=== PATIENT | female | born 1980 | race Caucasian/White ===

== ENCOUNTER 2023-06-11 11:42 | Inpatient (IN) | payer MEDICAID, OTHER ==
[~2023-06-11] VITALS: Ht 162.6 cm; Wt 75.3 kg
[2023-06-11 12:03] LABS: PH,URINE DRUG SCREEN 6.5 (5.0-8.0)
[2023-06-11 12:07] LABS: ALCOHOL, URINE DRUG SCREEN NEGATIVE (NEGATIVE); AMPHET/METH SCREEN,URINE NEGATIVE (NEGATIVE); BARBITURATE SCREEN, URINE NEGATIVE (NEGATIVE); BENZODIAZEPINES SCREEN,URINE NEGATIVE (NEGATIVE); CANNABINOID SCREEN,URINE POSITIVE (NEGATIVE); COCAINE SCREEN,URINE NEGATIVE (NEGATIVE); METHADONE SCREEN, URINE NEGATIVE (NEGATIVE); OPIATE SCREEN,URINE NEGATIVE (NEGATIVE); PHENCYCLIDINE SCREEN,URINE NEGATIVE (NEGATIVE)
[2023-06-11 12:08] LABS: BASOPHILS % (AUTO) 0.3 % (0.0-2.0); EOSINOPHILS % (AUTO) 0.2 % (1.0-6.0); HEMATOCRIT 38.6 % (36-46); HEMOGLOBIN 12.3 g/dL (12.0-16.0); LYMPHOCYTES # (AUTO) 1.5 K/uL (1.0-4.8); LYMPHOCYTES % (AUTO) 14.5 % (22.0-44.0); MEAN CORPUSCULAR HEMOGLOBIN 27.7 pg (26.0-34.0); MEAN CORPUSCULAR HGB CONC 31.9 G/dL (31.0-37.0); MEAN CORPUSCULAR VOLUME 87 fL (80-100); MONOCYTES # (AUTO) 0.6 K/uL (0.1-1.0); MONOCYTES % (AUTO) 5.3 % (2.0-9.0); NEUTROPHILS # (AUTO) 8.3 K/uL (1.8-7.7); NEUTROPHILS % (AUTO) 79.7 % (40.0-70.0); PLATELET COUNT (AUTO) 314 K/uL (150-450); RED BLOOD CELL COUNT(AUTO) 4.44 MIL/uL (4.00-5.20); RED CELL DISTRIBUTION WIDTH 14.9 % (11.5-14.5); WHITE BLOOD COUNT (AUTO) 10.5 K/uL (4.5-11.0)
[2023-06-11 12:17] LABS: ANION GAP 9 mmol/L (8-16); CALCIUM, TOTAL 8.8 mg/dL (8.8-10.5); CARBON DIOXIDE 29 mmol/L (22-29); CHLORIDE 95 mmol/L (98-107); CREATININE 0.93 mg/dL (0.60-1.30); GLOMERULAR FILTR. RATE CALC > 60 mL/min (>60); GLUCOSE,RANDOM 183 mg/dL (70-110); POTASSIUM 3.3 mmol/L (3.5-5.1); SODIUM SERUM 133 mmol/L (136-145); UREA NITROGEN, BLOOD 16 mg/dL (7-18)
[2023-06-11 12:20] LABS: ALANINE AMINOTRANSFERASE < 6 U/L (12-78); ALBUMIN 3.8 g/dL (3.4-5.0); ALKALINE PHOSPHATASE 94 U/L (46-116); ASPARTATE AMINOTRANSFERASE 47 U/L (15-37); BILIRUBIN,TOTAL 0.7 mg/dL (0.1-1.0); TOTAL PROTEIN, SERUM 7.6 g/dL (6.4-8.2)
[2023-06-11 12:30] LABS: ALCOHOL, BLOOD (SERUM) < 3 mg/dL (0-10)
[2023-06-11] MEDS ORDERED: TRAZ-184 PO (15:19)
[2023-06-11] MEDS ORDERED: GABA-1201 PO (15:20)
[2023-06-11] MEDS ORDERED: BUSP7.5T7 PO (15:23)
[2023-06-11] MEDS ORDERED: LOSA-30 PO (15:23)
[2023-06-11] MEDS ORDERED: ALBU90AE IH (15:25)
[2023-06-11] MEDS ORDERED: DULO-114 PO (15:26)
[2023-06-11] MEDS ORDERED: GABAPENTIN 400 MG CAPSULE PO ONE (17:00)
[2023-06-11 17:08] LABS: COVID AG,FIA SOURCE NASAL SWAB
[2023-06-11 17:29] LABS: SARS-COV2 (COVID) ANTIGEN,FIA Negative (Negative)
[2023-06-11] MEDS ORDERED: ALBUTEROL SULFATE HFA 90 MCG/PUFF 8 GM INHALER IH PRN (23:00)
[2023-06-12] MEDS ORDERED: LORazepam 2 MG TABLET PO PRN
[2023-06-12] MEDS ORDERED: HALOPERIDOL 5 MG TABLET PO PRN
[2023-06-12] MEDS ORDERED: HYDROCHLOROTHIAZIDE 25 MG TABLET PO ONE (09:30)
[2023-06-12] MEDS ORDERED: LOSARTAN POTASSIUM 50 MG TABLET PO SCH (09:30)
[2023-06-12] MEDS ORDERED: IBUPROFEN 600 MG TABLET PO PRN (09:30)
[2023-06-12] MEDS: GABAPENTIN 400 MG CAPSULE PO SCH ×2 (09:39→15:09)
[2023-06-12] MEDS: ZOLPIDEM TARTRATE 10 MG TABLET PO PRN (21:43)
[2023-06-12] MEDS ORDERED: ALBUTEROL SULFATE 2.5 MG/0.5 ML NEB SOLUTION NEB PRN (22:45)
[2023-06-12 23:05] VITALS: BP 144/95; PULSE 112; RESP 19; TEMP 97.2; O2SAT 98
[2023-06-13] VITALS (7 sets, daily range): BP systolic 144–189; BP diastolic 89–115; PULSE 100–118; RESP 18–20; TEMP 97–98.8; O2SAT 98–99
[2023-06-13] MEDS ORDERED: DOCUSATE SODIUM 100 MG CAPSULE PO PRN (07:15)
[2023-06-13] MEDS ORDERED: BACITRACIN 28 GM OINTMENT TP PRN (07:15)
[2023-06-13] MEDS ORDERED: OMEPRAZOLE 20 MG CAPSULE PO PRN (07:15)
[2023-06-13] MEDS ORDERED: ONDANSETRON HCL 4 MG TABLET PO PRN (07:15)
[2023-06-13] MEDS ORDERED: IBUPROFEN 600 MG TABLET PO PRN (07:15)
[2023-06-13] MEDS ORDERED: BENZOCAINE/MENTHOL LOZENGE PO PRN (07:15)
[2023-06-13] MEDS ORDERED: PETROLATUM,WHITE 28 GM JELLY TP PRN (07:15)
[2023-06-13] MEDS ORDERED: ACETAMINOPHEN 325 MG TABLET PO PRN (07:15)
[2023-06-13] MEDS ORDERED: MAGNESIUM HYDROXIDE SUSPENSION 30 ML UDCUP PO PRN (07:15)
[2023-06-13] MEDS ORDERED: ALBUTEROL SULFATE HFA 90 MCG/PUFF 8 GM INHALER IH PRN (07:15)
[2023-06-13] MEDS ORDERED: LOPERAMIDE HCL 2 MG CAPSULE PO PRN (07:15)
[2023-06-13] MEDS ORDERED: MAG HYDROX/AL HYDROX/SIMETH ES 30 ML SUSPENSION UDCUP PO PRN (07:15)
[2023-06-13] MEDS ORDERED: POTASSIUM CHLORIDE 20 MEQ ER TABLET PO ONE (07:15)
[2023-06-13] MEDS: FLUTICASONE/SALMETEROL 100-50 MCG/INH INHALER [60] IH SCH ×2 (08:48→20:46)
[2023-06-13] MEDS: LOSARTAN POTASSIUM 50 MG TABLET PO SCH (08:48)
[2023-06-13] MEDS: THIAMINE 100 MG TABLET PO SCH (08:49)
[2023-06-13] MEDS: GABAPENTIN 400 MG CAPSULE PO SCH ×3 (08:50→17:16)
[2023-06-13] MEDS: HYDROCHLOROTHIAZIDE 25 MG TABLET PO SCH (08:51)
[2023-06-13] MEDS: CloNIDine HCL 0.1 MG TABLET PO PRN ×2 (10:53→21:23)
[2023-06-13] MEDS ORDERED: BUSP15TA3 PO (14:13)
[2023-06-13] MEDS ORDERED: OXYB5TAB20 PO (14:13)
[2023-06-13] MEDS ORDERED: ALBU18HF12 IH (14:13)
[2023-06-13] MEDS: DIVALPROEX SODIUM 500 MG DR TABLET PO SCH (17:17)
[2023-06-13] MEDS: ZOLPIDEM TARTRATE 10 MG TABLET PO PRN (22:08)
[2023-06-14 06:33] LABS: BASOPHILS % (AUTO) 0.4 % (0.0-2.0); EOSINOPHILS % (AUTO) 3.9 % (1.0-6.0); HEMATOCRIT 36.8 % (36-46); HEMOGLOBIN 12.3 g/dL (12.0-16.0); LYMPHOCYTES # (AUTO) 2.9 K/uL (1.0-4.8); MEAN CORPUSCULAR HEMOGLOBIN 29.2 pg (26.0-34.0); MEAN CORPUSCULAR HGB CONC 33.3 G/dL (31.0-37.0); MEAN CORPUSCULAR VOLUME 88 fL (80-100); MONOCYTES # (AUTO) 0.9 K/uL (0.1-1.0); MONOCYTES % (AUTO) 9.3 % (2.0-9.0); NEUTROPHILS # (AUTO) 5.5 K/uL (1.8-7.7); NEUTROPHILS % (AUTO) 56.4 % (40.0-70.0); PLATELET COUNT (AUTO) 275 K/uL (150-450); WHITE BLOOD COUNT (AUTO) 9.8 K/uL (4.5-11.0)
[2023-06-14 07:04] LABS: ALANINE AMINOTRANSFERASE 8 U/L (12-78); ALBUMIN 3.3 g/dL (3.4-5.0); ALKALINE PHOSPHATASE 75 U/L (46-116); ANION GAP 10 mmol/L (8-16); ASPARTATE AMINOTRANSFERASE 20 U/L (15-37); BILIRUBIN,TOTAL 0.6 mg/dL (0.1-1.0); CALCIUM, TOTAL 8.9 mg/dL (8.8-10.5); CARBON DIOXIDE 28 mmol/L (22-29); CHLORIDE 98 mmol/L (98-107); CHOL/HDL RATIO 3.7 (3.9-5.7); CHOLESTEROL 267 mg/dL (131-200); CREATININE 0.73 mg/dL (0.60-1.30); GLOMERULAR FILTR. RATE CALC > 60 mL/min (>60); GLUCOSE,RANDOM 106 mg/dL (70-110); HDL CHOLESTEROL 73 mg/dL (40-60); LDL CHOL (CALC.) 172 mg/dL (0-130); PHOSPHORUS 4.6 mg/dL (2.5-4.9); POTASSIUM 3.9 mmol/L (3.5-5.1); SODIUM SERUM 136 mmol/L (136-145); THYROID STIMULATING HORMONE 2.72 uIU/mL (0.36-3.74); TOTAL PROTEIN, SERUM 6.9 g/dL (6.4-8.2); TRIGLYCERIDES 108 mg/dL (15-150); UREA NITROGEN, BLOOD 15 mg/dL (7-18)
[2023-06-14 07:08] LABS: HEMOGLOBIN A1C 5.1 % (3.8-5.6)
[2023-06-14] MEDS: GABAPENTIN 400 MG CAPSULE PO SCH ×3 (08:16→16:45)
[2023-06-14] MEDS: FLUTICASONE/SALMETEROL 100-50 MCG/INH INHALER [60] IH SCH ×2 (08:16→20:05)
[2023-06-14] MEDS: THIAMINE 100 MG TABLET PO SCH (08:16)
[2023-06-14] MEDS: HYDROCHLOROTHIAZIDE 25 MG TABLET PO SCH (08:16)
[2023-06-14] MEDS: DULoxetine HCL 60 MG CAPSULE PO SCH (08:16)
[2023-06-14] MEDS: DIVALPROEX SODIUM 500 MG DR TABLET PO SCH ×2 (08:16→16:45)
[2023-06-14] MEDS: LOSARTAN POTASSIUM 50 MG TABLET PO SCH (08:16)
[2023-06-14 08:30] VITALS: BP 159/99; PULSE 116; RESP 20; TEMP 98.2; O2SAT 98
[2023-06-14] MEDS: ZOLPIDEM TARTRATE 10 MG TABLET PO PRN (21:22)
[2023-06-14 21:47] VITALS: BP 167/90; PULSE 102; RESP 19; TEMP 98; O2SAT 99
[2023-06-15] MEDS: DIVALPROEX SODIUM 500 MG DR TABLET PO SCH (09:00)
[2023-06-15] MEDS: DULoxetine HCL 60 MG CAPSULE PO SCH (09:07)
[2023-06-15] MEDS: LOSARTAN POTASSIUM 50 MG TABLET PO SCH (09:07)
[2023-06-15] MEDS: GABAPENTIN 400 MG CAPSULE PO SCH ×2 (09:07→13:41)
[2023-06-15] MEDS: THIAMINE 100 MG TABLET PO SCH (09:07)
[2023-06-15] MEDS: HYDROCHLOROTHIAZIDE 25 MG TABLET PO SCH (09:08)
[2023-06-15] MEDS: FLUTICASONE/SALMETEROL 100-50 MCG/INH INHALER [60] IH SCH (09:17)
[2023-06-15 10:48] VITALS: BP 164/102; PULSE 104; RESP 18; TEMP 97.6; O2SAT 99
[2023-06-15] MEDS ORDERED: FLUT1BLS18 IH (14:02)
[2023-06-15] MEDS ORDERED: LOSA-382 PO (14:02)
[2023-06-15] MEDS ORDERED: HYDR25TA2 PO (14:02)
[2023-06-15] MEDS ORDERED: DULO-113 PO (14:05)
[2023-06-15] MEDS ORDERED: DIVA-112 PO (14:05)
== END 2023-06-15 14:20 | disposition home or self-care (01) | DRG 754 ==
LOC: EMS 11:45 → UNDOADMIN 06-12 18:22 → 3EI 06-12 18:22
PROVIDERS: ADMIT Psychiatry & Neurology Psychiatry; ATTEND Psychiatry & Neurology Psychiatry
DX: F32.9 Major depressive disorder, single episode, unspecified (principal); R45.851 Suicidal ideations; F41.9 Anxiety disorder, unspecified; Z20.822 Contact with and (suspected) exposure to COVID-19; G47.00 Insomnia, unspecified; F12.90 Cannabis use, unspecified, uncomplicated; I10 Essential (primary) hypertension; K59.00 Constipation, unspecified; Z79.899 Other long term (current) drug therapy
CPT/HCPCS: 80053; 80061; 80307; 83036; 83735; 84100; 84443; 85025; 99285; G0480; J3535